=== PATIENT | male | born 1960 | race African-American/Black ===

== ENCOUNTER 2016-10-29 18:50 | Emergency (ER) | payer MEDICAID ==
[~2016-10-29] VITALS: Ht 175.3 cm; Wt 95.7 kg
[2016-10-29 18:54] VITALS: BP 140/78
--- NOTE | 2016-10-29 21:59 | NUR ---
TO ER OF1
[2016-10-29] MEDS ORDERED: METHOCARBAMOL 500 MG TAB PO ONE (22:25)
[2016-10-29] MEDS ORDERED: KETOROLAC 30 MG/ML VIAL IM ONE (22:25)
[2016-10-29] MEDS ORDERED: HYDROcodone/APAP 5/325 MG 1 TAB TAB PO ONE (22:25)
[2016-10-29] MEDS ORDERED: MORPHINE SULFATE 2 MG/ML SYR IM ONE (23:05)
[2016-10-29 23:45] VITALS: BP 132/67
--- NOTE | 2016-10-29 23:45 | NUR ---
Patient discharged with v/s stable. Written and verbal after care instructions given and explained. Patient alert, oriented and verbalized understanding of instructions. Ambulatory with steady gait. All questions addressed prior to discharge. ID band removed. Patient advised to follow up with PMD. Rx of Motrin, [place] 5/325, and Robaxin given. Patient educated on indication of medication including possible reaction and side effects. Opportunity to ask questions provided and answered.
== END 2016-10-29 22:45 | disposition home or self-care (01) ==
LOC: MED 18:50
DX: G89.29 Other chronic pain (principal); M54.5 Low back pain; I10 Essential (primary) hypertension
CPT/HCPCS: 72110; 96372; 99284; J1885; J2270

== ENCOUNTER 2023-05-17 08:53 | Emergency (ER) | payer MEDICAID, OTHER ==
[~2023-05-17] VITALS: Ht 180.3 cm; Wt 99.9 kg
[2023-05-17 09:01] VITALS: BP 112/71; PULSE 104; RESP 20; TEMP 100.2; O2SAT 98
[2023-05-17] MEDS ORDERED: KETOROLAC 30 MG/ML VIAL IM ONE (09:25)
[2023-05-17] MEDS ORDERED: ACET-10509 PO (10:35)
[2023-05-17] MEDS ORDERED: NAPR-1704 PO (10:35)
[2023-05-17] MEDS ORDERED: CEPH-588 PO (10:35)
== END 2023-05-17 10:44 | disposition home or self-care (01) ==
LOC: MED 08:53
DX: L03.115 Cellulitis of right lower limb (principal); I10 Essential (primary) hypertension; Z79.899 Other long term (current) drug therapy
CPT/HCPCS: 93971; 96372; 99285; J1885; Q0092

== ENCOUNTER 2023-05-27 08:04 | Inpatient (IN) | payer OTHER ==
[~2023-05-27] VITALS: Ht 177.8 cm; Wt 102.1 kg
[~2023-05-27 08:04] MED LIST: ACET-10509 PO; CEPH-588 PO; NAPR-1704 PO
[2023-05-27 08:08] VITALS: BP 148/89; PULSE 92; RESP 14; TEMP 98.4; O2SAT 94
[2023-05-27] MEDS ORDERED: KETOROLAC 30 MG/ML VIAL IVP ONE (08:50)
[2023-05-27] MEDS ORDERED: ceFAZolin 1,000 MG VIAL ONE (09:23)
[2023-05-27 09:31] LABS: BASOPHILS # (AUTO) 0.1 K/uL (0.00-0.22); BASOPHILS % (AUTO) 1.1 % (0.0-2.0); EOSINOPHILS # (AUTO) 0.1 K/uL (0-0.4); EOSINOPHILS % (AUTO) 0.9 % (0.0-4.0); HEMATOCRIT 32.9 % (36-52); HEMOGLOBIN 10.6 g/dL (12.0-18.0); LYMPHOCYTES # (AUTO) 1.8 K/uL (2.0-11.5); LYMPHOCYTES % (AUTO) 17.9 % (20.5-51.1); MEAN CORPUSCULAR HEMOGLOBIN 27 pg (27-31); MEAN CORPUSCULAR HGB CONC 32 g/dL (33-37); MEAN CORPUSCULAR VOLUME 85.2 fL (80-94); MONOCYTES # (AUTO) 0.9 K/uL (0.8-1.0); MONOCYTES % (AUTO) 9.5 % (1.7-9.3); NEUTROPHILS # (AUTO) 7.1 K/uL (1.8-7.7); NEUTROPHILS % (AUTO) 70.6 % (42.2-75.2); PLATELET COUNT (AUTO) 491 K/uL (140-450); RED BLOOD CELL COUNT(AUTO) 3.86 MIL/uL (4.20-6.10); RED CELL DISTRIBUTION WIDTH 14.3 % (11.6-13.7)
[2023-05-27 09:42] LABS: ANION GAP 10.9 (8-16); CALCIUM 9.3 mg/dL (8.5-10.1); CARBON DIOXIDE 30.3 mmol/L (21-32); CREATININE 1.1 mg/dL (0.6-1.3); POTASSIUM 4.2 mmol/L (3.5-5.1)
[2023-05-27] MEDS ORDERED: POTASSIUM CHLORIDE 10 MEQ TABER PO PRN (12:05)
[2023-05-27] MEDS ORDERED: ACETAMINOPHEN 325 MG TAB PO PRN (12:05)
[2023-05-27] MEDS ORDERED: VANCOMYCIN PER PHARMACY MC PRN (12:05)
[2023-05-27] MEDS ORDERED: ONDANSETRON 4 MG/2 ML VIAL IVP PRN (12:05)
[2023-05-27] MEDS ORDERED: MAGNESIUM OXIDE 400 MG TAB PO PRN (12:05)
[2023-05-27] MEDS ORDERED: LORazepam 1 MG TAB PO PRN (12:05)
[2023-05-27] MEDS: NACL 0.9% 1,000 ML IV SCH (12:38)
[2023-05-27] MEDS ORDERED: cefTRIAXone 1,000 MG VIAL ONE (12:56)
[2023-05-27 14:10] VITALS: BP 159/133; PULSE 95; RESP 20; TEMP 97.2; O2SAT 93
[2023-05-27] MEDS ORDERED: hydrALAZINE 25 MG TAB PO PRN (14:30)
[2023-05-27] MEDS: VANCOMYCIN 1,000 MG in DEXTROSE 5% 250 ML IV SCH (14:57)
[2023-05-27] MEDS: MORPHINE SULFATE 2 MG/ML SYR IVP PRN (15:47)
[2023-05-27 16:00] VITALS: BP 149/83; PULSE 90; RESP 20; TEMP 98.4; O2SAT 95
[2023-05-27 20:00] VITALS: BP 144/75; PULSE 53; PULSE 86; RESP 17; RESP 19; TEMP 97; O2SAT 99
[2023-05-28] MEDS ORDERED: VANCOMYCIN 1,000 MG VIAL ONE (01:17)
[2023-05-28] MEDS: VANCOMYCIN 1,000 MG in DEXTROSE 5% 250 ML IV SCH (01:26)
[2023-05-28] MEDS: NACL 0.9% 1,000 ML IV SCH ×2 (01:26→13:05)
[2023-05-28 04:00] VITALS: BP 156/88; PULSE 87; RESP 19; TEMP 98.2; O2SAT 99
[2023-05-28 06:07] LABS: BASOPHILS % (AUTO) 0.5 % (0.0-2.0); EOSINOPHILS # (AUTO) 0.1 K/uL (0-0.4); EOSINOPHILS % (AUTO) 1.3 % (0.0-4.0); LYMPHOCYTES # (AUTO) 2.2 K/uL (2.0-11.5); LYMPHOCYTES % (AUTO) 23.7 % (20.5-51.1); MEAN CORPUSCULAR HEMOGLOBIN 27 pg (27-31); MEAN CORPUSCULAR HGB CONC 32 g/dL (33-37); MEAN CORPUSCULAR VOLUME 84.4 fL (80-94); MONOCYTES # (AUTO) 0.9 K/uL (0.8-1.0); NEUTROPHILS # (AUTO) 5.9 K/uL (1.8-7.7); NEUTROPHILS % (AUTO) 64.5 % (42.2-75.2); PLATELET COUNT (AUTO) 490 K/uL (140-450); RED BLOOD CELL COUNT(AUTO) 3.67 MIL/uL (4.20-6.10); RED CELL DISTRIBUTION WIDTH 14.2 % (11.6-13.7); WHITE BLOOD COUNT (AUTO) 9.2 K/uL (4.8-10.8)
[2023-05-28 06:23] LABS: CALCIUM 8.3 mg/dL (8.5-10.1); CARBON DIOXIDE 27.6 mmol/L (21-32); CREATININE 0.9 mg/dL (0.6-1.3); POTASSIUM 3.6 mmol/L (3.5-5.1)
[2023-05-28 08:00] VITALS: BP 146/90; PULSE 92; RESP 18; TEMP 97.6; O2SAT 93
[2023-05-28] MEDS: DOCUSATE SODIUM 100 MG GELCAP PO SCH (08:25)
[2023-05-28] MEDS: HYDROcodone/APAP 5/325 MG 1 TAB TAB PO PRN ×2 (11:36→21:20)
[2023-05-28] MEDS: VANCOMYCIN 1.25GM PREMIX 250 ML IV SCH (14:14)
[2023-05-28 14:27] VITALS: BP 138/82; PULSE 88; RESP 18; TEMP 97.7; O2SAT 97
[2023-05-28 20:00] VITALS: BP 156/90; PULSE 94; RESP 17; RESP 18; TEMP 98.2; O2SAT 97
[2023-05-29] MEDS: NACL 0.9% 1,000 ML IV SCH ×2 (01:52→14:40)
[2023-05-29] MEDS: VANCOMYCIN 1.25GM PREMIX 250 ML IV SCH ×2 (01:56→14:39)
[2023-05-29 05:39] LABS: BASOPHILS # (AUTO) 0.1 K/uL (0.00-0.22); BASOPHILS % (AUTO) 0.8 % (0.0-2.0); EOSINOPHILS # (AUTO) 0.2 K/uL (0-0.4); EOSINOPHILS % (AUTO) 1.5 % (0.0-4.0); HEMATOCRIT 31.6 % (36-52); HEMOGLOBIN 10.4 g/dL (12.0-18.0); LYMPHOCYTES # (AUTO) 2.4 K/uL (2.0-11.5); LYMPHOCYTES % (AUTO) 23.3 % (20.5-51.1); MEAN CORPUSCULAR HEMOGLOBIN 28 pg (27-31); MEAN CORPUSCULAR HGB CONC 33 g/dL (33-37); MEAN CORPUSCULAR VOLUME 84.2 fL (80-94); MONOCYTES # (AUTO) 1.1 K/uL (0.8-1.0); MONOCYTES % (AUTO) 10.2 % (1.7-9.3); NEUTROPHILS # (AUTO) 6.7 K/uL (1.8-7.7); NEUTROPHILS % (AUTO) 64.2 % (42.2-75.2); PLATELET COUNT (AUTO) 468 K/uL (140-450); RED BLOOD CELL COUNT(AUTO) 3.75 MIL/uL (4.20-6.10); RED CELL DISTRIBUTION WIDTH 14.1 % (11.6-13.7); WHITE BLOOD COUNT (AUTO) 10.4 K/uL (4.8-10.8)
[2023-05-29 06:08] LABS: ANION GAP 12.6 (8-16); CALCIUM 8.5 mg/dL (8.5-10.1); CARBON DIOXIDE 24.2 mmol/L (21-32); CREATININE 0.9 mg/dL (0.6-1.3); POTASSIUM 3.8 mmol/L (3.5-5.1)
[2023-05-29 06:44] VITALS: BP 138/89; PULSE 89; RESP 18; TEMP 98.1; O2SAT 97
[2023-05-29 08:00] VITALS: BP 140/91; PULSE 88; RESP 18; TEMP 97.3; O2SAT 97
[2023-05-29] MEDS: DOCUSATE SODIUM 100 MG GELCAP PO SCH (09:06)
[2023-05-29] MEDS: HYDROcodone/APAP 5/325 MG 1 TAB TAB PO PRN ×2 (13:56→21:04)
[2023-05-29 14:27] VITALS: BP 152/96; PULSE 88; RESP 20; TEMP 97.7; O2SAT 93
[2023-05-29 20:00] VITALS: BP 148/89; PULSE 91; RESP 17; RESP 20; TEMP 98.2; O2SAT 93
[2023-05-30] MEDS: VANCOMYCIN 1.25GM PREMIX 250 ML IV SCH ×2 (01:44→14:58)
[2023-05-30] MEDS: NACL 0.9% 1,000 ML IV SCH (02:35)
[2023-05-30 06:11] LABS: BASOPHILS # (AUTO) 0.1 K/uL (0.00-0.22); BASOPHILS % (AUTO) 0.9 % (0.0-2.0); EOSINOPHILS # (AUTO) 0.2 K/uL (0-0.4); EOSINOPHILS % (AUTO) 1.9 % (0.0-4.0); HEMATOCRIT 30.9 % (36-52); HEMOGLOBIN 10.1 g/dL (12.0-18.0); LYMPHOCYTES # (AUTO) 2.3 K/uL (2.0-11.5); LYMPHOCYTES % (AUTO) 24.2 % (20.5-51.1); MEAN CORPUSCULAR HEMOGLOBIN 28 pg (27-31); MEAN CORPUSCULAR HGB CONC 33 g/dL (33-37); MEAN CORPUSCULAR VOLUME 84.4 fL (80-94); MONOCYTES # (AUTO) 0.9 K/uL (0.8-1.0); MONOCYTES % (AUTO) 10.1 % (1.7-9.3); NEUTROPHILS # (AUTO) 5.9 K/uL (1.8-7.7); NEUTROPHILS % (AUTO) 62.9 % (42.2-75.2); PLATELET COUNT (AUTO) 481 K/uL (140-450); RED BLOOD CELL COUNT(AUTO) 3.66 MIL/uL (4.20-6.10); RED CELL DISTRIBUTION WIDTH 14.4 % (11.6-13.7); WHITE BLOOD COUNT (AUTO) 9.3 K/uL (4.8-10.8)
[2023-05-30 06:36] VITALS: BP 146/90; PULSE 76; RESP 20; TEMP 98.2; O2SAT 93
[2023-05-30 06:40] LABS: ANION GAP 12.4 (8-16); CALCIUM 9.2 mg/dL (8.5-10.1); CARBON DIOXIDE 25.7 mmol/L (21-32); CREATININE 0.9 mg/dL (0.6-1.3); POTASSIUM 4.1 mmol/L (3.5-5.1)
[2023-05-30 08:00] VITALS: PULSE 82; RESP 18
[2023-05-30] MEDS: DOCUSATE SODIUM 100 MG GELCAP PO SCH (09:36)
[2023-05-30] MEDS: HYDROcodone/APAP 5/325 MG 1 TAB TAB PO PRN ×2 (09:39→14:55)
[2023-05-30] MEDS: FUROSEMIDE 20 MG TAB PO SCH (12:22)
[2023-05-30 14:27] VITALS: BP 153/83; PULSE 85; RESP 18; TEMP 97; O2SAT 97
[2023-05-30 20:00] VITALS: BP 144/93; PULSE 83; PULSE 92; RESP 18; TEMP 97.6; O2SAT 95
[2023-05-30] MEDS: MORPHINE SULFATE 2 MG/ML SYR IVP PRN (20:48)
[2023-05-30] MEDS: NYSTATIN/TRIAMCINOLONE CRM 15 GM TUBE TP SCH (21:00)
[2023-05-31] MEDS: VANCOMYCIN 1.25GM PREMIX 250 ML IV SCH ×2 (02:27→15:22)
[2023-05-31] MEDS: HYDROcodone/APAP 5/325 MG 1 TAB TAB PO PRN ×4 (02:41→23:31)
[2023-05-31 04:00] VITALS: BP 135/89; PULSE 77; RESP 18; TEMP 97; O2SAT 93
[2023-05-31 05:48] LABS: BASOPHILS % (AUTO) 0.2 % (0.0-2.0); EOSINOPHILS # (AUTO) 0.2 K/uL (0-0.4); EOSINOPHILS % (AUTO) 2.1 % (0.0-4.0); HEMATOCRIT 30.8 % (36-52); HEMOGLOBIN 10.1 g/dL (12.0-18.0); LYMPHOCYTES # (AUTO) 2.1 K/uL (2.0-11.5); LYMPHOCYTES % (AUTO) 26.2 % (20.5-51.1); MEAN CORPUSCULAR HEMOGLOBIN 28 pg (27-31); MEAN CORPUSCULAR HGB CONC 33 g/dL (33-37); MEAN CORPUSCULAR VOLUME 84.1 fL (80-94); MONOCYTES # (AUTO) 0.8 K/uL (0.8-1.0); MONOCYTES % (AUTO) 9.7 % (1.7-9.3); NEUTROPHILS % (AUTO) 61.8 % (42.2-75.2); PLATELET COUNT (AUTO) 487 K/uL (140-450); RED BLOOD CELL COUNT(AUTO) 3.66 MIL/uL (4.20-6.10); RED CELL DISTRIBUTION WIDTH 14.3 % (11.6-13.7); WHITE BLOOD COUNT (AUTO) 8.1 K/uL (4.8-10.8)
[2023-05-31 06:00] LABS: ANION GAP 12.5 (8-16); CALCIUM 8.7 mg/dL (8.5-10.1); CARBON DIOXIDE 26.4 mmol/L (21-32); CREATININE 0.9 mg/dL (0.6-1.3); POTASSIUM 3.9 mmol/L (3.5-5.1)
[2023-05-31 08:00] VITALS: PULSE 82; RESP 18
[2023-05-31] MEDS: NYSTATIN/TRIAMCINOLONE CRM 15 GM TUBE TP SCH ×2 (09:00→20:44)
[2023-05-31] MEDS: DOCUSATE SODIUM 100 MG GELCAP PO SCH (09:59)
[2023-05-31] MEDS: FUROSEMIDE 20 MG TAB PO SCH (09:59)
[2023-05-31 16:00] VITALS: BP 139/75; PULSE 82; RESP 18; TEMP 97.8; O2SAT 95
[2023-05-31 20:00] VITALS: BP 143/80; PULSE 82; RESP 18; TEMP 97.7; O2SAT 92
[2023-06-01] MEDS: VANCOMYCIN 1.25GM PREMIX 250 ML IV SCH ×2 (02:26→14:00)
[2023-06-01 04:00] VITALS: BP 141/86; PULSE 78; RESP 19; TEMP 97; O2SAT 96
[2023-06-01 05:40] LABS: BASOPHILS # (AUTO) 0.1 K/uL (0.00-0.22); BASOPHILS % (AUTO) 1.2 % (0.0-2.0); EOSINOPHILS # (AUTO) 0.2 K/uL (0-0.4); EOSINOPHILS % (AUTO) 2.2 % (0.0-4.0); HEMATOCRIT 31.7 % (36-52); HEMOGLOBIN 10.3 g/dL (12.0-18.0); LYMPHOCYTES # (AUTO) 2.5 K/uL (2.0-11.5); LYMPHOCYTES % (AUTO) 31.2 % (20.5-51.1); MEAN CORPUSCULAR HEMOGLOBIN 27 pg (27-31); MEAN CORPUSCULAR HGB CONC 33 g/dL (33-37); MEAN CORPUSCULAR VOLUME 84.3 fL (80-94); MONOCYTES # (AUTO) 0.8 K/uL (0.8-1.0); NEUTROPHILS # (AUTO) 4.5 K/uL (1.8-7.7); NEUTROPHILS % (AUTO) 55.4 % (42.2-75.2); PLATELET COUNT (AUTO) 521 K/uL (140-450); RED BLOOD CELL COUNT(AUTO) 3.76 MIL/uL (4.20-6.10); RED CELL DISTRIBUTION WIDTH 14.7 % (11.6-13.7); WHITE BLOOD COUNT (AUTO) 8.1 K/uL (4.8-10.8)
[2023-06-01 05:59] LABS: ANION GAP 12.6 (8-16); CALCIUM 8.7 mg/dL (8.5-10.1); CARBON DIOXIDE 25.5 mmol/L (21-32); POTASSIUM 4.1 mmol/L (3.5-5.1)
[2023-06-01] MEDS: HYDROcodone/APAP 5/325 MG 1 TAB TAB PO PRN ×2 (06:55→11:03)
[2023-06-01 08:00] VITALS: PULSE 82; RESP 20
[2023-06-01] MEDS: FUROSEMIDE 20 MG TAB PO SCH (09:19)
[2023-06-01] MEDS: DOCUSATE SODIUM 100 MG GELCAP PO SCH (09:19)
[2023-06-01] MEDS: NYSTATIN/TRIAMCINOLONE CRM 15 GM TUBE TP SCH (09:20)
[2023-06-01] MEDS ORDERED: DOXY-690 PO (11:31)
[2023-06-01] MEDS ORDERED: ACET-8905 PO (11:32)
[2023-06-01] MEDS ORDERED: ACET-2619 PO (11:32)
[2023-06-01 15:02] VITALS: BP 141/86; PULSE 82; RESP 20; TEMP 97
== END 2023-06-01 17:10 | disposition home or self-care (01) | DRG 720 ==
LOC: MED 08:04 → MTU 12:03
PROVIDERS: ADMIT Student in an Organized Health Care Education/Training Program; ATTEND Student in an Organized Health Care Education/Training Program
DX: A41.9 Sepsis, unspecified organism (principal); E83.51 Hypocalcemia; L03.115 Cellulitis of right lower limb; E78.5 Hyperlipidemia, unspecified; I10 Essential (primary) hypertension
CPT/HCPCS: 36415; 71045; 73590; 73630; 73701; 80048; 80202; 83605; 83735; 83880; 85025; 87040; 87081; 93005; 96365; 96375; 97116; 97163-GP; 97530; 99285; J0690; J0696; J2270; J3370; J3372; J7060; Q9967

== ENCOUNTER 2023-08-09 05:51 | Inpatient (IN) | payer OTHER ==
[~2023-08-09] VITALS: Ht 175.3 cm; Wt 90.7 kg
[2023-08-09] VITALS (10 sets, daily range): BP systolic 120–144; BP diastolic 57–83; PULSE 78–99; RESP 17–24; TEMP 97–98.8; O2SAT 95–97
[~2023-08-09 05:51] MED LIST changes: -ACET-10509 PO; -CEPH-588 PO; -NAPR-1704 PO; +SULF-58 PO
[2023-08-09] MEDS: predniSONE 20 MG TAB PO ONE (07:04)
[2023-08-09 07:11] LABS: HEMOGLOBIN 13.2 g/dL (12.0-18.0); MEAN CORPUSCULAR HEMOGLOBIN 28 pg (27-31); MEAN CORPUSCULAR HGB CONC 33 g/dL (33-37); MEAN CORPUSCULAR VOLUME 83.1 fL (80-94); PLATELET COUNT (AUTO) 369 K/uL (140-450); RED BLOOD CELL COUNT(AUTO) 4.81 MIL/uL (4.20-6.10); RED CELL DISTRIBUTION WIDTH 16.1 % (11.6-13.7)
[2023-08-09] MEDS: ALBUTEROL 0.083% 2.5 MG/3 ML NEBU INH ONE (07:14)
[2023-08-09 07:26] LABS: WHITE BLOOD COUNT (AUTO) 28.4 K/uL (4.8-10.8)
[2023-08-09 07:27] LABS: ANION GAP 13.4 (8-16); CALCIUM 9.2 mg/dL (8.5-10.1); CARBON DIOXIDE 25.2 mmol/L (21-32); CREATININE 1.5 mg/dL (0.6-1.3); POTASSIUM 3.6 mmol/L (3.5-5.1)
[2023-08-09 07:28] LABS: INR 1.09 (0.8-1.2); PARTIAL THROMBOPLASTIN TIME 23.9 secs (22-35.6); PROTHROMBIN TIME 11.4 secs (10.8-13.4)
[2023-08-09] MEDS ORDERED: PIPERACILLIN/TAZOBACTAM 3.375 GM VIAL IV ONE (07:33)
[2023-08-09 07:36] LABS: ALANINE AMINOTRANSFERASE 15 U/L (12-78); ALKALINE PHOSPHATASE 53 U/L (50-136); ASPARTATE AMINOTRANSFERASE 14 U/L (15-37); BILIRUBIN,DIRECT 0.1 mg/dL (0.0-0.3); TOTAL BILIRUBIN 0.5 mg/dL (0.0-1.0); TOTAL PROTEIN, SERUM 8.7 g/dL (6.4-8.2)
[2023-08-09 07:42] LABS: LYMPHOCYTES % (MANUAL) 3 % (20-46); MONOCYTES % (MANUAL) 1 % (5-12)
[2023-08-09 07:52] LABS: FLU A ANTIGEN negative (NEGATIVE); FLU B ANTIGEN negative (NEGATIVE)
[2023-08-09] MEDS: PIPERACILLIN/TAZOBACTAM 3.375 GM in DEXT 5% MINI-BAG PLUS 50 ML IV ONE (08:04)
[2023-08-09] MEDS: NACL 0.9% 1,000 ML IV ONE ×2 (08:43→09:05)
[2023-08-09 09:04] LABS: LACTIC ACID 2.6 mmol/L (0.4-2.0)
[2023-08-09] MEDS ORDERED: ONDANSETRON 4 MG/2 ML VIAL IVP PRN (09:15)
[2023-08-09] MEDS ORDERED: LORazepam 1 MG TAB PO PRN (09:15)
[2023-08-09] MEDS ORDERED: ACETAMINOPHEN 325 MG TAB PO PRN (09:15)
[2023-08-09] MEDS ORDERED: ZOLPIDEM 5 MG TAB PO PRN (09:15)
[2023-08-09] MEDS ORDERED: MAG SULF 2000 MG/WATER PREMIX 50 ML IV PRN (09:15)
[2023-08-09] MEDS ORDERED: KCL 20 MEQ IN 100 mL PREMIX 200 ML IV PRN (09:15)
[2023-08-09] MEDS ORDERED: POTASSIUM CHLORIDE 10 MEQ TABER PO PRN (09:15)
[2023-08-09 09:17] LABS: APPEARANCE,URINE CLEAR (CLEAR); BILIRUBIN,URINE 1+ (NEGATIVE); BLOOD, URINE NEGATIVE (NEGATIVE); COLOR,URINE ORANGE (YELLOW); LEUKOCYTE ESTERASE ,URINE TRACE (NEGATIVE); NITRITE, URINE NEGATIVE (NEGATIVE); PROTEIN,URINE TRACE (NEGATIVE); UGLUCOSE NEGATIVE (NEGATIVE)
[2023-08-09 09:29] LABS: BACTERIA,URINE 10-30 (MOD) /HPF (None Seen); ICTOTEST NEGATIVE (NEGATIVE); MUCUS,URINE 1+ /LPF (None Seen); RBC,URINE 0-5 /HPF (0-5); SQUAMOUS EPITHELIAL CELL,UR 4-10 (MOD) /LPF (0-3 (FEW)); WBC,URINE 0-5 /HPF (0-5)
[2023-08-09 09:30] LABS: AMPHETAMINE, URINE NEGATIVE ng/ml (NEG <=1000); BARBITURATE, URINE NEGATIVE ng/ml (NEG <=200); BENZODIAZEPINE, URINE NEGATIVE ng/mL (NEG <=200); CANNABINOID, URINE NEGATIVE ng/mL (NEG <=50); COCAINE, URINE POSITIVE ng/mL (NEG <=300)
[2023-08-09 09:31] LABS: OPIATE, URINE NEGATIVE ng/mL (NEG <=2000); PHENCYCLIDINE SCREEN,URINE POSITIVE ng/mL (NEG <=25)
[2023-08-09] MEDS: LINEZOLID 600MG PREMIX 300 ML IV SCH (10:17)
[2023-08-09] MEDS ORDERED: SULF-280 PO (10:32)
[2023-08-09] MEDS: NACL 0.9% 1,000 ML IV SCH (11:18)
[2023-08-09] MEDS: PIPERACILLIN/TAZOBACTAM 3.375 GM in DEXTROSE 5% 50 ML IV SCH (13:39)
[2023-08-10] VITALS (9 sets, daily range): BP systolic 122–150; BP diastolic 69–80; PULSE 74–93; RESP 18; TEMP 97.2–98.5; O2SAT 91–97
[2023-08-10 07:07] LABS: CALCIUM 9.2 mg/dL (8.5-10.1); CARBON DIOXIDE 28.2 mmol/L (21-32); CREATININE 1.2 mg/dL (0.6-1.3); POTASSIUM 4.2 mmol/L (3.5-5.1)
[2023-08-10 07:15] LABS: HEMATOCRIT 35.9 % (36-52); HEMOGLOBIN 11.6 g/dL (12.0-18.0); MEAN CORPUSCULAR HEMOGLOBIN 27 pg (27-31); MEAN CORPUSCULAR HGB CONC 32 g/dL (33-37); MEAN CORPUSCULAR VOLUME 84.2 fL (80-94); PLATELET COUNT (AUTO) 330 K/uL (140-450); RED BLOOD CELL COUNT(AUTO) 4.27 MIL/uL (4.20-6.10); RED CELL DISTRIBUTION WIDTH 15.9 % (11.6-13.7); WHITE BLOOD COUNT (AUTO) 23.7 K/uL (4.8-10.8)
[2023-08-10 07:32] LABS: LYMPHOCYTES % (MANUAL) 6 % (20-46); MONOCYTES % (MANUAL) 6 % (5-12)
[2023-08-10] MEDS: MEDS-TO-BEDS MC SCH (08:05)
[2023-08-10] MEDS: MORPHINE SULFATE 4 MG/ML SYR IVP PRN (08:06)
[2023-08-11] VITALS: BP 104/71; PULSE 76; PULSE 79; RESP 18; TEMP 97.2; O2SAT 94
[2023-08-11 04:00] VITALS: BP 125/68; PULSE 77; PULSE 78; RESP 18; TEMP 97.5; O2SAT 95
[2023-08-11 07:02] LABS: CALCIUM 8.8 mg/dL (8.5-10.1); CARBON DIOXIDE 26.6 mmol/L (21-32); POTASSIUM 3.6 mmol/L (3.5-5.1)
[2023-08-11 07:09] LABS: RED BLOOD CELL COUNT(AUTO) 4.03 MIL/uL (4.20-6.10)
[2023-08-11 07:11] LABS: HEMATOCRIT 33.8 % (36-52); MEAN CORPUSCULAR HEMOGLOBIN 27 pg (27-31); MEAN CORPUSCULAR HGB CONC 33 g/dL (33-37); MEAN CORPUSCULAR VOLUME 83.8 fL (80-94); PLATELET COUNT (AUTO) 331 K/uL (140-450); RED CELL DISTRIBUTION WIDTH 15.5 % (11.6-13.7); WHITE BLOOD COUNT (AUTO) 15.1 K/uL (4.8-10.8)
[2023-08-11 08:00] VITALS: BP 128/78; PULSE 77; PULSE 80; PULSE 90; RESP 17; RESP 18; TEMP 97.3; O2SAT 95; O2SAT 98
[2023-08-11 08:36] LABS: EOSINOPHILS % (MANUAL) 2 % (0-4); LYMPHOCYTES % (MANUAL) 20 % (20-46); MONOCYTES % (MANUAL) 13 % (5-12)
[2023-08-11] MEDS: MAGNESIUM OXIDE 400 MG TAB PO SCH (11:02)
[2023-08-11] MEDS: HYDROcodone/APAP 5/325 MG 1 TAB TAB PO PRN (11:37)
[2023-08-11 12:00] VITALS: BP 128/79; PULSE 90; PULSE 91; RESP 18; TEMP 98.1; O2SAT 95
[2023-08-11] MEDS ORDERED: AMOX1TAB8 PO (14:35)
== END 2023-08-11 16:30 | disposition home or self-care (01) | DRG 720 ==
LOC: MED 05:51 → MTU 09:15
PROVIDERS: ADMIT Internal Medicine; ATTEND Internal Medicine
DX: A41.9 Sepsis, unspecified organism (principal); N17.9 Acute kidney failure, unspecified; E44.0 Moderate protein-calorie malnutrition; E87.1 Hypo-osmolality and hyponatremia; Z20.822 Contact with and (suspected) exposure to COVID-19; R65.20 Severe sepsis without septic shock; L03.115 Cellulitis of right lower limb; I10 Essential (primary) hypertension; F14.90 Cocaine use, unspecified, uncomplicated; Z68.29 Body mass index [BMI] 29.0-29.9, adult
CPT/HCPCS: 36415; 71045; 73700; 80048; 80076; 80305; 81001; 83605; 83735; 83880; 84484; 85025; 85379; 85610; 85730; 87040; 87081; 87086; 93005; 93971; 94640; 96361; 96365; 99291; J1644; J2020; J2270; J2543; J7060; J7512; J7613; Q0092

== ENCOUNTER 2023-08-25 13:45 | Emergency (ER) | payer OTHER ==
[~2023-08-25] VITALS: Ht 175.3 cm; Wt 90.7 kg
[~2023-08-25 13:45] MED LIST changes: +AMOX1TAB8 PO; +SULF-280 PO
[2023-08-25 14:27] VITALS: BP 125/76; PULSE 97; RESP 18; TEMP 98.5; O2SAT 96
[2023-08-25 17:34] LABS: BASOPHILS # (AUTO) 0.2 K/uL (0.00-0.22); BASOPHILS % (AUTO) 1.8 % (0.0-2.0); EOSINOPHILS # (AUTO) 0.2 K/uL (0-0.4); EOSINOPHILS % (AUTO) 1.8 % (0.0-4.0); HEMOGLOBIN 11.1 g/dL (12.0-18.0); LYMPHOCYTES # (AUTO) 2.1 K/uL (2.0-11.5); LYMPHOCYTES % (AUTO) 20.9 % (20.5-51.1); MEAN CORPUSCULAR HEMOGLOBIN 27 pg (27-31); MEAN CORPUSCULAR HGB CONC 33 g/dL (33-37); MEAN CORPUSCULAR VOLUME 82.6 fL (80-94); MONOCYTES % (AUTO) 9.6 % (1.7-9.3); NEUTROPHILS # (AUTO) 6.6 K/uL (1.8-7.7); NEUTROPHILS % (AUTO) 65.9 % (42.2-75.2); PLATELET COUNT (AUTO) 462 K/uL (140-450); RED BLOOD CELL COUNT(AUTO) 4.12 MIL/uL (4.20-6.10); RED CELL DISTRIBUTION WIDTH 16.1 % (11.6-13.7); WHITE BLOOD COUNT (AUTO) 10.1 K/uL (4.8-10.8)
[2023-08-25 17:51] LABS: ANION GAP 7.7 (8-16); CARBON DIOXIDE 29.8 mmol/L (21-32); POTASSIUM 3.5 mmol/L (3.5-5.1)
[2023-08-25] MEDS ORDERED: DOXY-690 PO (18:48)
== END 2023-08-25 19:01 | disposition home or self-care (01) ==
LOC: MED 13:45
DX: I87.8 Other specified disorders of veins (principal); L03.115 Cellulitis of right lower limb; R22.41 Localized swelling, mass and lump, right lower limb
CPT/HCPCS: 36415; 80048; 85025; 93971; 99284